=== PATIENT | male | born 1935 | race Caucasian/White ===

== ENCOUNTER 2018-01-08 13:55 | Observation (INO) ==
[2018-01-08] MEDS ORDERED: NITROGLYCERIN 0.4 MG SUBLINGUAL TABLET SL PRN ×2 (14:06→17:11)
[2018-01-08] MEDS ORDERED: ASPIRIN 81 MG CHEWABLE TABLET PO ONE (14:06)
[2018-01-08] MEDS: SALINE FLUSH 10ml SYRINGE IVF PRN ×2 (14:10→16:10)
--- OUTSIDE RECORDS SUMMARY | 2018-01-08 14:43 | External Medical Summary | Continuity of Care Document ---
:1935 Author Organization Via [facility] Allergies Active Description Code Type Severity Reaction Onset Reported/ Identified Relationship Clinical to Patient Status Yes ERBINAFINE 26714 N/A N/A Yes SYMBICOR N/A N/A Yes SYMBICORT N/A N/A Yes TERBINAFINE 17568 N/A N/A Yes VALIUM 62566 N/A N/A 2 Yes Aminoglycosi neomy Aller Unknown N/A 05/06/2016 rody lashay gy Yes Bacitracin bacit Aller Unknown N/A 05/06/2016 racin gy Yes Benzodiazepi diaze AdvRe Unknown HYPERACTI 05/06/2016 sascha willem ac VE Yes Beta-Adrener formo Aller M RESTLESSN 05/06/2016 gic Agents terol gy ESS, fumar ANXIETY, ate HYPERACTI VITY Yes Clavulanic potas AdvRe I DIARRHEA 05/06/2016 Acid sium ac clavu lanat e Yes Corticostero budes Aller M RESTLESSN 05/06/2016 ids onide gy ESS, (Glucocortic ANXIETY, oids) HYPERACTI VITY Yes Gramicidins grami Aller Unknown N/A 05/06/2016 cidin gy D Yes Penicillins amoxi AdvRe I DIARRHEA 05/06/2016 cilli ac n trihy drate Yes Polymyxin B polym Aller Unknown N/A 05/06/2016 yxin gy B Medications Medication Packaging Start Date Stop Date Route Dosage Sig 05/27/2010 PO 150 mg BID Ranitidine HCl 05/27/2010 PO 50 mg HS Doxepin HCl 05/27/2010 PO 500 mg BID Metformin HCl 05/27/2010 PO 20 mg BID Furosemide 05/27/2010 PO HS Zocor ORAL 08/17/2012 ORAL 30 q6h XANAX 5 05/29/2013 PO 0.4 mg HS Tamsulosin HCl 05/29/2013 PO 5 mg HS Finasteride Inhaler 08/06/2014 90 2 ProAir HFA 90 4 mcg/actuati (two) Puff(s) mcg/actuation on by Inhalation aerosol inhaler route every 4 to 6 hours 09/06/2014 PO 80 mg Q8H Simethicone ORAL 10/17/2014 ORAL 30 ZOLOFT 5 every morning 05/06/2016 SQ 100 unit/ml ACS NovoLOG 05/06/2016 SQ BID Lantus 06/18/2017 1 Q1D fluticasone furoate 0.1 MG/ACTUAT / vilanterol 0.025 MG/ACTUAT Dry Powder Inhaler 01/08/2018 PO 250 mg Levaquin DAILY 01/08/2018 PO 0.4 mg HS Flomax 01/08/2018 PO 1,000 mg Glucophage BIDWM 01/08/2018 PO 5 mg HS Proscar 01/08/2018 PO 81 mg Ecotrin DAILY 01/08/2018 PO 250 mg TID Flagyl 01/08/2018 PO 20 mg Lasix 20 mg Tab DAILY Problems Date Dx Attending Type Code Diagnosis Diagnosed By Coded 04/21/2013 Catrachito HERNANDEZ, Final 185 PROSTATE CA John 04/21/2013 Catrachito HERNANDEZ, Final 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 John 04/21/2013 Catrachito HERNANDEZ, Final 401.1 BENIGN HYPERTENSION John 04/21/2013 Catrachito HERNANDEZ, Final 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 04/21/2013 Catrachito HERNANDEZ, Final 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 John 04/21/2013 Catrachito HERNANDEZ, Final 530.81 ESOPHAGEAL REFLUX John 04/21/2013 Catrachito HERNANDEZ, Admitting 786.50 CHEST PAIN NOS John 05/01/2014 CINDY HERNANDEZ, SON 493.10 Intrinsic Asthma CINDY HERNANDEZ, SON Unspecified 05/01/2014 CINDY HERNANDEZ, SON 494.0 Bronchiectasis CINDY HERNANDEZ, SON Without Acute Exacerbation 05/01/2014 CINDY HERNANDEZ, SON 518.89 Other Diseases Of CINDY HERNANDEZ, SON Lung Not Elsewhere Classified 05/01/2014 CINDY HERNANDEZ, SON 780.53 Hypersomnia With CINDY HERNANDEZ, SON Sleep Apnea Unspecified 05/01/2014 CINDY HERNANDEZ, SON 780.79 Other Malaise And CINDY HERNANDEZ, SON Fatigue 05/01/2014 CINDY HERNANDEZ, SON 786.05 Shortness Of Breath CINDY HERNANDEZ, SON 05/01/2014 CINDY HERNANDEZ, SON 786.07 Wheezing CINDY HERNANDEZ, SON 05/01/2014 WHITELILLIE HERNANDEZ, SON 786.2 Cough CINDY HERNANDEZ, SON 05/01/2014 CINDY HERNANDEZ, SON 799.02 Hypoxemia CINDY HERNANDEZ, SON 05/10/2014 CINDY HERNANDEZ, SON 493.10 Intrinsic Asthma CINDY HERNANDEZ, SON Unspecified 05/10/2014 CINDY HERNANDEZ, SON 494.0 Bronchiectasis CINDY HERNANDEZ, SON Without Acute Exacerbation 05/10/2014 CINDY HERNANDEZ, SON 518.89 Other Diseases Of CINDY HERNANDEZ, SON Lung Not Elsewhere Classified 05/10/2014 CINDY HERNANDEZ, SON 780.53 Hypersomnia With CINDY HERNANDEZ, SON Sleep Apnea Unspecified 05/10/2014 CINDY HERNANDEZ, SON 780.79 Other Malai And CINDY HERNANDEZ, SON Fatigue 05/10/2014 CINDY HERNANDEZ, SON 786.05 Shortness Of Breath CINDY HERNANDEZ, SON 05/10/2014 CINDY HERNANDEZ, SON 786.07 Wheezing CINDY HERNANDEZ, SON 05/10/2014 CINDY HERNANDEZ, SON 786.2 Cough CINDY HERNANDEZ, SON 05/10/2014 CINDY HERNANDEZ, SON 799.02 Hypoxemia CINDY HERNANDEZ, SON 05/23/2014 CINDY HERNANDEZ, SON 786.09 Respiratory CINDY HERNANDEZ, SON Abnormality Other 08/22/2014 CINDY HERNANDEZ, SON 250.00 Diabetes Mellitus CINDY HERNANDEZ, SON Without Mention Of Complication Type Ii Or Unspecified Type Not Stated As Uncontrolled 08/22/2014 CINDY HERNANDEZ, SON 401.9 Unspecified CINDY HERNANDEZ, SON Essential Hypertension 08/22/2014 CINDY HERNANDEZ, SON 493.10 Intrinsic Asthma CINDY HERNANDEZ, SON Unspecified 08/22/2014 CINDY HERNANDEZ, SON 494.0 Bronchiectasis CINDY HERNANDEZ, SON Without Acute Exacerbation 08/22/2014 CINDY HERNANDEZ, SON 518.89 Other Diseases Of CINDY HERNANDEZ, SON Lung Not Elsewhere Classified 08/22/2014 CINDY HERNANDEZ, SON 780.53 Hypersomnia With CINDY HERNANDEZ, SON Sleep Apnea Unspecified 08/22/2014 CINDY HERNANDEZ, SON 780.79 Other Malaise And CINDY HERANNDEZ, SON Fatigue 08/22/2014 CINDY HERNANDEZ, SON 799.02 Hypoxemia CINDY HERNANDEZ, SON 03/26/2015 CINDY HERNANDEZ, SON 250.00 Diabetes Mellitus CINDY HERNANDEZ, SON Without Mention Of Complication Type Ii Or Unspecified Type Not Stated As Uncontrolled 03/26/2015 CINDY HERNANDEZ, SON 401.9 Unspecified CINDY HERNANDEZ, SON Essential Hypertension 03/26/2015 CINDY HERNANDEZ, SON 493.10 Intrinsic Asthma CINDY HERNANDEZ, SON Unspecified 03/26/2015 CINDY HERNANDEZ, SON 494.0 Bronchiectasis CINDY HERNANDEZ, SON Without Acute Exacerbation 03/26/2015 CINDY HERNANDEZ, SON 518.89 Other Diseases Of CINDY HERNANDEZ, SON Lung Not Elsewhere Classified 03/26/2015 CINDY HERNANDEZ, SON 780.53 Hypersomnia With CINDY HERNANDEZ, SON Sleep Apnea Unspecified 03/26/2015 CINDY HERNANDEZ, SON 780.79 Other Malaise And CINDY HERNANDEZ, SON Fatigue 03/26/2015 CINDY HERNANDEZ, SON 786.05 Shortness Of Breath CINDY HERNANDEZ, SON 03/26/2015 CINDY HERNANDEZ, SON 786.07 Wheezing CINDY HERNANDEZ, SON 03/26/2015 CINDY HERNANDEZ, SON 786.2 Cough CINDY HERNANDEZ, SON 03/26/2015 CINDY HERNANDEZ, SON 799.02 Hypoxemia CINDY HERNANDEZ, SON 04/20/2015 CINDY HERNANDEZ, SON 786.05 Shortness Of Breath CINDY HERNANDEZ, SON 04/10/2016 CINDY HERNANDEZ, SON J42 Unspecified chronic CINDY HERNANDEZ, SON bronchitis 04/10/2016 CINDY HERNANDEZ, SON J47.9 Bronchiectasis, CINDY HERNANDEZ, SON uncomplicated 04/10/2016 CINDY HERNANDEZ, SON R09.02 Hypoxemia CINDY HERNANDEZ, SON 04/10/2016 CINDY HERNANDEZ, SON R91.1 Solitary pulmonary CINDY HERNANDEZ, SON nodule 05/01/2016 CINDY HERNANDEZ, SON J47.9 Bronchiectasis, CINDY HERNANDEZ, SON uncomplicated 10/12/2016 CINDY HERNANDEZ, SON 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 CINDY HERNANDEZ, SON 10/12/2016 CINDY HERNANDEZ, SON G47.33 Obstructive sleep CINDY HERNANDEZ, SON apnea (adult) (pediatric) 10/12/2016 CINDY HERNANDEZ, SON J47.9 Bronchiectasis, CINDY HERNANDEZ, SON uncomplicated 10/12/2016 CINDY HERNANDEZ, SON R09.02 Hypoxemia CINDY HERNANDEZ, SON 10/12/2016 CINDY HERNANDEZ, SON R91.1 Solitary pulmonary CINDY HERNANDEZ, SON nodule 03/31/2017 CINDY HERNANDEZ, SON 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 CINDY HERNANDEZ, SON 03/31/2017 CINDY HERNANDEZ, SON J42 Unspecified chronic CINDY HERNANDEZ, SON bronchitis 03/31/2017 CINDY HERNANDEZ, SON R05 Cough CINDY HERNANDEZ, SON 03/31/2017 CINDY HERNANDEZ, SON R06.02 Shortness of breath CINDY HERNANDEZ, SON 03/31/2017 CINDY HERNANDEZ, SON R09.02 Hypoxemia CINDY HERNANDEZ, SON 03/31/2017 CINDY HERNANDEZ, SON R53.83 Other fatigue CINDY HERNANDEZ, SON 03/31/2017 CINDY HERNANDEZ, SON R91.1 Solitary pulmonary CINDY HERNANDEZ, SON nodule 04/21/2017 CINDY HERNANDEZ, SON J47.9 Bronchiectasis, CINDY HERNANDEZ, SON uncomplicated 08/26/2017 F G47.10 Hypersomnia, unspecified 08/26/2017 F G47.33 Obstructive sleep apnea (adult) (pediatric) 08/26/2017 F G47.36 Sleep related hypoventilation in conditions classified elsewhere 08/26/2017 F J44.9 Chronic obstructive pulmonary disease, unspecified 08/26/2017 F R05 Cough 08/26/2017 F R06.02 Shortness of breath 08/26/2017 F R53.83 Other fatigue 08/26/2017 F J47.9 Bronchiectasis, uncomplicated 11/03/2017 RASHID GARCIA G47.10 Hypersomnia, unspecified 11/03/2017 RASHID GARCIA G47.33 Obstructive sleep apnea (adult) (pediatric) 11/03/2017 RASHID GARCIA G47.36 Sleep related hypoventilation in conditions classified elsewhere 11/03/2017 RASHID GARCIA I25.10 Atherosclerotic heart disease of [place] coronary artery without angina pectoris 11/03/2017 RASHID GARCIA J44.9 Chronic obstructive pulmonary disease, unspecified 11/03/2017 RASHID GARCIA R05 Cough 11/03/2017 RASHID GARCIA R06.02 Shortness of breath 11/03/2017 RASHID GARCIA R53.83 Other fatigue 11/03/2017 RASHID GARCIA Z23 Encounter for immunization 11/24/2017 RASHID GARCIA J42 Unspecified chronic bronchitis 11/24/2017 RASHID GARCIA J47.9 Bronchiectasis, uncomplicated 11/25/2017 RASHID GARCIA G47.10 Hypersomnia, unspecified 11/25/2017 RASHID GARCIA G47.36 Sleep related hypoventilation in conditions classified elsewhere 11/25/2017 RASHID GARCIA I25.10 Atherosclerotic heart disease of [place] coronary artery without angina pectoris 11/25/2017 RASHID GARCIA J42 Unspecified chronic bronchitis 11/25/2017 RASHID GARCIA J44.9 Chronic obstructive pulmonary disease, unspecified 11/25/2017 RASHID GARCIA J47.9 Bronchiectasis, uncomplicated 11/25/2017 RASHID GARCIA R05 Cough 11/25/2017 RASHID GARCIA R06.02 Shortness of breath 11/25/2017 RASHID GARCIA R53.83 Other fatigue 11/25/2017 RASHID GARCIA Z23 Encounter for immunization 11/25/2017 RASHID GARCIA G47.39 Other sleep apnea 11/25/2017 ARSHID GARCIA I50.30 Unspecified diastolic (congestive) heart failure Procedures Code Description Performed By Performed On PX ON 1 VESSEL Catrachito HERNANDEZ, John 04/21/2013 00.40 INSERT 1 VASC Catrachito HERNANDEZ, John 04/21/2013 00.45 STENT PTCA/ATHERECTOMY Catrachito HERNANDEZ, John 04/21/2013 00.66 DRUG-ELUTING COR Catrachito HERNANDEZ, John 04/21/2013 36.07 STENT LEFT HEART CARDIAC Catrachito HERNANDEZ, John 04/21/2013 37.22 CATH LT HEART Catrachito HERNANDEZ, John 04/21/2013 88.53 ANGIOCARDIOGRAM COR ARTERIOGRAM-2 John Winston MD 04/21/2013 88.56 CATH Amy WHITE MD, [facility] 03/21/2016 90907 and/or evaluation of patient utilization of an aerosol generator, nebulizer, metered d Noninvasive kd WHITE MD, [facility] 03/21/2016 13545 pulse oximetry for oxygen saturation; single determination Noninvasive kd WHITE MD, [facility] 03/21/2016 14768 pulse oximetry for oxygen saturation; multiple determinations (eg, during exercis Office or other CINDY HERNANDEZ, [facility] 03/21/2016 84742 outpatient visit for the evaluation and management of an established patient, which Bronchodiljennifer WHITE MD, [facility] 03/21/2016 12149 responsiveness[place] [address], pre- and post-bronchodilator administration Amy WHITE MD, [facility] 04/10/2016 23305 and/or evaluation of patient utilization of an aerosol generator, nebulizer, metered d Office or other CINDY HERNANDEZ, [facility] 04/10/2016 99983 outpatient visit for the evaluation and management of an established patient, which Amy WHITE MD, [facility] 04/10/2016 84240 and/or evaluation of patient utilization of an aerosol generator, nebulizer, metered d Office or other CINDY HERNANDEZ, [facility] 04/10/2016 54080 outpatient visit for the evaluation and management of an established patient, which Amy WHITE MD, [facility] 04/30/2016 24304 and/or evaluation of patient utilization of an aerosol generator, nebulizer, metered d Office or other CINDY HERNANDEZ, [facility] 04/30/2016 23756 outpatient visit for the evaluation and management of an established patient, which Bronchodilation CINDY HERNANDEZ, [facility] 05/01/2016 30214 responsiveness[place] [address], pre- and post-bronchodilator administration Bronchodilation CINDY HERNANDEZ, [facility] 05/01/2016 40391 responsiveness[place] [address], pre- and post-bronchodilator administration Bronchodilation CINDY HERNANDEZ, [facility] 05/19/2016 16184 responsiveness[place] [address], pre- and post-bronchodilator administration Bronchodilation CINDY HERNANDEZ, [facility] 07/16/2016 88672 responsiveness[place] [address], pre- and post-bronchodilator administration Bronchodilation CINDY HERNANDEZ, [facility] 07/28/2016 69039 responsiveness[place] [address], pre- and post-bronchodilator administration Amy WHITE MD [facility] 10/12/2016 28237 and/or evaluation of patient utilization of an aerosol generator, nebulizer, metered d Office or other CINDY HERNANDEZ, [facility] 10/12/2016 84194 outpatient visit for the evaluation and management of an established patient, which Amy WHITE MD [facility] 10/27/2016 18776 and/or evaluation of patient utilization of an aerosol generator, nebulizer, metered d Office or other CINDY HERNANDEZ [facility] 10/27/2016 91607 outpatient visit for the evaluation and management of an established patient, which Amy WHITE MD [facility] 10/27/2016 99659 and/or evaluation of patient utilization of an aerosol generator, nebulizer, metered d Office or other CINDY HERNANDEZ [facility] 10/27/2016 05429 outpatient visit for the evaluation and management of an established patient, which Amy WHITE MD [facility] 03/31/2017 79848 and/or evaluation of patient utilization of an aerosol generator, nebulizer, metered d Office or other CINDY HERNANDEZ [facility] 03/31/2017 42349 outpatient visit for the evaluation and management of an established patient, which Amy WHITE MD [facility] 04/10/2017 94815 and/or evaluation of patient utilization of an aerosol generator, nebulizer, metered d Office or other CINDY HERNANDEZ [facility] 04/10/2017 99241 outpatient visit for the evaluation and management of an established patient, which EST PATIENT LEVEL 08/26/2017 50682 4 EVALUATION OF 08/26/2017 83168 WHEEZI Amy WHITE MD, [facility] 08/26/2017 65115 and/or evaluation of patient utilization of an aerosol generator, nebulizer, metered d Noninvasive kd WHITE MD, [facility] 08/26/2017 12400 pulse oximetry for oxygen saturation; single determination Luciano WHITE MD, [facility] 08/26/2017 54145 pulse oximetry for oxygen saturation; multiple determinations (eg, during exercis Office or other CINDY HERNANDEZ [facility] 08/26/2017 11131 outpatient visit for the evaluation and management of an established patient, which Bronchodilation CINDY HERNANDEZ [facility] 08/26/2017 65749 responsiveness[place] [address], pre- andpost-bronchodilator administration Demonstration CINDY HERNANDEZ, [facility] 08/26/2017 66203 and/or evaluation of patient utilization of an aerosolgenerator, nebulizer, metered do Noninvasive kd WHITE MD, [facility] 08/26/2017 11197 pulse oximetry for oxygen saturation; singledetermination Office or other CINDY HERNANDEZ, [facility] 08/26/2017 17863 outpatient visit for the evaluation and management ofan established patient, which r Tobacco use CINDY HENRANDEZ, [facility] 08/26/2017 1000F assessed (CAD, CAP, COPD, PV) (DM) Medication list CINDY HERNANDEZ, [facility] 08/26/2017 1159F documented in medical record (COA) Blood pressure CINDY HERNANDEZ, [facility] 08/26/2017 2000F measured (CKD)(DM) Bronchodilation CINDY HERNANDEZ, [facility] 08/26/2017 72232 responsiveness[place] [address], pre- and post-bronchodilator administration Demonstration CINDY HERNANDEZ, [facility] 08/26/2017 53441 and/or evaluation of patient utilization of an aerosol generator, nebulizer, metered d Luciano WHITE MD, [facility] 08/26/2017 10600 pulse oximetry for oxygen saturation; single determination Luciano WHITE MD, [facility] 08/26/2017 38214 pulse oximetry for oxygen saturation; multiple determinations (eg, during exercis Office or other CINDY HERNANDEZ, [facility] 08/26/2017 85104 outpatient visit for the evaluation and management of an established patient, which Bronchodilation CINDY HERNANDEZ, [facility] 08/26/2017 45482 responsiveness[place] [address], pre- and post-bronchodilator administration Demonstration CINDY HERNANDEZ, [facility] 08/26/2017 55372 and/or evaluation of patient utilization of an aerosol generator, nebulizer, metered d Office or other CINDY HERNANDEZ, [facility] 08/26/2017 68417 outpatient visit for the evaluation and management of an established patient, which Bronchodiljennifer WHITE MD, [facility] 08/26/2017 56333 responsiveness[place] [address], pre- and post-bronchodilator administration EST PATIENT LEVEL 11/03/2017 66968 4 EST PATIENT LEVEL 11/25/2017 89754 4 Results Test Result Range L100.0070 - 08/17/16 04:10 WBC - WHITE BLOOD COUNT 8.3 T/MM3 4.5-11.0 RED BLOOD COUNT 4.49 M/MM3 4.50-5.90 HGB - HEMOGLOBIN 13.4 GM/DL 13.5-17.5 HCT - HEMATOCRIT 39.2 % 41-53 MEAN CORPUSCULAR VOLUME 87.3 UM3 80-100 MEAN CORPUSCULAR HGB 29.8 UUG 26-34 MEAN CORPUSCULAR HGB CONC(MCHC 34.2 GM/DL 31-37 RDW STANDARD DEVIATION 41.2 FL 36.9-50.2 PLT - PLATELET COUNT 204 T/MM3 130-400 MEAN PLATELET VOLUME 9.7 UM3 9.4-12.4 L200.49 - 05/06/16 04:10 ICTERUS < 2 0-7 HEMOLYSIS < 15 0-25 L575.0925 - 05/06/16 04:20 CAMPYLOBACTER NEGATIVE NEGATIVE CLOSTRIDIUM DIFFICILE TOX A/B NEGATIVE NEGATIVE PLESIOMONAS SHIGELLOIDES NEGATIVE NEGATIVE SALMONELLA NEGATIVE NEGATIVE VIBRIO NEGATIVE NEGATIVE VIBRIO CHOLERAE NEGATIVE NEGATIVE YERSINIA ENTERCOLITICA NEGATIVE NEGATIVE ENTEROAGGREGATIVE ECOLI(EAEC) NEGATIVE NEGATIVE ENTEROPATHOGENIC ECOLI(EPEC) NEGATIVE NEGATIVE ENTEROTOXIGENIC ECOLI(ETEC) NEGATIVE NEGATIVE SHIGA-LIKE TOX ECOLI(STEC) 1/2 NEGATIVE NEGATIVE E COLI O157 N/A NA/NEG SHIG/ENTEROINVASIVE ECOLI-EIEC NEGATIVE NEGATIVE CRYPTOSPORIDIUM NEGATIVE NEGATIVE CYCLOSPORA CAYETANENSIS NEGATIVE NEGATIVE ENTAMOEBA HISTOLYTICA NEGATIVE NEGATIVE GIARDIA LAMBLIA NEGATIVE NEGATIVE ADENOVIRUS F 40/41 NEGATIVE NEGATIVE ASTROVIRUS NEGATIVE NEGATIVE NOROVIRUS GI/GII NEGATIVE NEGATIVE ROTAVIRUS A NEGATIVE NEGATIVE SAPOVIRUS NEGATIVE NEGATIVE L100.0050 - 01/08/18 14:12 WBC - WHITE BLOOD COUNT 6.9 T/MM3 4.5-11.0 RED BLOOD COUNT 4.45 M/MM3 4.50-5.90 HGB - HEMOGLOBIN 13.1 GM/DL 13.5-17.5 HCT - HEMATOCRIT 38.9 % 41-53 MEAN CORPUSCULAR VOLUME 87.4 UM3 80-100 MEAN CORPUSCULAR HGB 29.4 UUG 26-34 MEAN CORPUSCULAR HGB CONC(MCHC 33.7 GM/DL 31-37 RDW STANDARD DEVIATION 41.9 FL 36.9-50.2 PLT - PLATELET COUNT 264 T/MM3 130-400 MEAN PLATELET VOLUME 9.6 UM3 9.4-12.4 NEUTROPHILS % (AUTO) 72.4 % 33-66 LYMPHOCYTES % (AUTO) 16.9 % 23-45 MONOCYTES % (AUTO) 6.8 % 0-9.0 EOSINOPHILS % (AUTO) 3.2 % 0-4 BASOPHILS % (AUTO) 0.6 % 0-2 IMMATURE GRANULOCYTE % (AUTO) 0.1 % 0.0-0.5 NEUTROPHILS # (AUTO) 5.0 T/MM3 1.8-7.7 LYMPHOCYTES # (AUTO) 1.2 T/MM3 1-4.8 MONOCYTES # (AUTO) 0.5 T/MM3 0-0.8 EOSINOPHILS # (AUTO) 0.2 T/MM3 0-0.5 BASOPHILS # (AUTO) 0.0 T/MM3 0-0.2 IMMATURE GRANULOCYTE # (AUTO) 0.01 T/MM3 0.00-0.03 L200.0050 - 01/08/18 14:12 FUNGAL CULTURE. 0.9 mg/dL 0.8-1.5 FUNGAL CULTURE, BLOOD. 14 RATIO 6-26 NA - Sodium 143 MEQ/L 134-144 Potassium 4.1 MEQ/L 3.6-5 Chloride 106 MEQ/L 98-107 CO2 - Carbon Dioxide 22 MEQ/L 22-30 Anion Gap 15 meq/L 5-15 BUN - Blood Urea Nitrogen 13.0 MG/DL 9-20 Glomerular Filtration Rate 81 NRG Glucose 250 MG/DL 75-110 Osmolality,Calculated 283 MOSM/KG 261-280 Calcium 8.9 MG/DL 8.4-10.2 LICTERUS < 2 0-7 LHEMOLYSIS < 15 0-25 LTURBIDITY < 20 0-20 L300.3490 - 01/08/18 14:12 Troponin I < 0.012 ng/ml 0-0.12 Encounters ACCT No. Visit Discharge Status Pt. Type Provider Facility Loc./Unit Complaint Date/Time [id number] 04/21/2013 04/23/2013 DIS Inpatient Amirani Via [id number] 12:02:00 14:24:00 , [facility] on [place] [id number] 11/25/2017 11/25/2017 CLS Outpatient JOSE, MAIN 15:33:00 23:59:59 RASHID OFFICE [id number] 11/03/2017 11/03/2017 CLS Outpatient OHSONNYFRANCISCO, MAIN 11:07:00 23:59:59 RASHID OFFICE [id number] 11/03/2017 Document 12:19:[place] [id number] 08/26/2017 Document 12:22:[place] [id number] 08/26/2017 Document 12:22:00 Registrati on [id number] 03/31/2017 03/31/2017 CLS Outpatient WHITE 15:47:00 23:59:59 , SON [id number] 11/05/2016 11/05/2016 Outpatient 13:39:34 13:39:34 [id number] 10/01/2016 12/07/2016 DIS R NEELAM Reyes DMEDU 33 09:30:00 00:00:00 DO, [facility] [place] [id number] 06/25/2016 08/12/2016 DIS Kristy Reyes DMEDU 77 13:00:00 00:00:00 DO, [facility] [id number] 05/06/2016 05/06/2016 DIS Emergency MAY Eric HEDRICK ED 41 02:57:00 05:20:00 [facility] [id number] 01/08/2018 Document 88 14:05:00 Registrati on
[2018-01-08] MEDS ORDERED: CEFTRIAXONE (ER USE ONLY) 1 GM in NS 100 ML IV ONE (15:47)
--- NOTE | 2018-01-08 15:51 | Emergency Department Report ---
Chest Pain HPI - General Chief Complaint: Chest Pain Stated Complaint: cp/back pain Source: patient, family Mode of arrival: ambulatory Limitations: no limitations - History of Present Illness HPI narrative: PT presents with a complaint of chest and back pain. Pt reports that while sleeping last night he woke with chest and back pain like someone was "squeezing " him. He was able to roll over and go back to sleep but back pain continued this am. Pt has chronic back pain after multiple surgeries but states this is different than his normal pain. Pt denies nausea, vomiting, diaphoresis, SOA, fever, or cough. MD complaint: chest pain Occurred At: home Onset (ago): hour(s) Duration: constant Onset: during rest Pain location: substernal Severity: moderate Pain radiation: none Relieving factors: nothing - Related Data Home Medications Medication Instructions Recorded Confirmed Doxepin HCl 50 mg PO HS #0 05/27/10 01/08/18 Simvastatin [Zocor] 40 mg PO HS #0 05/27/10 01/08/18 Insulin Aspart [NovoLOG] 20 unit SQ ACB #0 vial 05/06/16 01/08/18 Insulin Aspart [NovoLOG] 25 unit SQ ACL #0 vial 05/06/16 01/08/18 Insulin Aspart [NovoLOG] 25 unit SQ ACS #0 vial 05/06/16 01/08/18 Insulin Glargine,Hum.rec.anlog 40 unit SQ BID #0 vial 05/06/16 01/08/18 [Lantus] Amlodipine [Norvasc] 5 mg PO DAILY 01/08/18 01/08/18 Aspirin [Ecotrin] 81 mg PO DAILY 01/08/18 01/08/18 Finasteride [Proscar] 5 mg PO HS 01/08/18 01/08/18 Fluticasone/Vilanterol [Breo 1 puff INH DAILY 01/08/18 01/08/18 Ellipta 200-25 Mcg Inhaler] Furosemide [Lasix 20 mg Tab] 20 mg PO DAILY 01/08/18 01/08/18 Latanoprost 1 drop EACH EYE HS 01/08/18 01/08/18 Levofloxacin [Levaquin] 250 mg PO DAILY 01/08/18 01/08/18 Levothyroxine Tab [Synthroid] 75 mcg PO DAILY 01/08/18 01/08/18 Lisinopril [Prinivil] 2.5 mg PO DAILY 01/08/18 01/08/18 Metformin [Glucophage] 500 mg PO BIDWM 01/08/18 01/08/18 Metoprolol Tartrate [Lopressor] 12.5 mg PO BIDWM 01/08/18 01/08/18 MetroNIDAZOLE [Flagyl] 250 mg PO TID 01/08/18 01/08/18 Nitroglycerin [Nitrostat] 0.4 mg SL Q5M PRN 01/08/18 01/08/18 Ropinirole [Requip] 1 mg PO HS 01/08/18 01/08/18 Tamsulosin [Flomax] 0.4 mg PO HS 01/08/18 01/08/18 Terbinafine Tab [LamISIL] 250 mg PO PRN 01/08/18 01/08/18 Allergies Allergy/AdvReac Type Severity Reaction Status Date / Time budesonide Allergy Mild RESTLESSNESS, Verified 05/06/16 03:42 ANXIETY, HYPERACTIVITY bacitracin Allergy Unknown Verified 01/08/18 14:30 gramicidin D Allergy Unknown Verified 01/08/18 14:30 neomycin Allergy Unknown Verified 01/08/18 14:30 polymyxin B Allergy Unknown Verified 01/08/18 14:30 diazepam AdvReac Unknown HYPERACTIVE Verified 01/08/18 14:30 formoterol fumarate Allergy Mild RESTLESSNESS, Uncoded 05/06/16 03:42 ANXIETY, HYPERACTIVITY amoxicillin trihydrate AdvReac Intermediate DIARRHEA Uncoded 05/06/16 03:42 potassium clavulanate AdvReac Intermediate DIARRHEA Uncoded 05/06/16 03:42 MUSCLE RELAXANTS AdvReac Unknown CONFUSION Uncoded 01/17/14 09:45 Review of Systems All systems: reviewed and negative except as stated Constitutional: Reports: as per HPI Cardiovascular: Reports: as per HPI Respiratory: Reports: as per HPI Gastrointestinal: Reports: as per HPI Musculoskeletal: Reports: as per HPI PFS Patient Stated Medical History Cerebrovascular Accident No Glaucoma Yes Hearing Loss Yes: HEARING AIDS BILAT EARS Angina Yes Coronary Artery Disease Yes Hypertension Yes Myocardial Infarction Yes Sleep Apnea Yes Other Respiratory Yes: BRONCHIOSTASIS Diabetes Mellitus Type 2 Yes Gastroesophageal Reflux Yes Disease Hx Kidney Stones Yes Recreational Drug Use No - Social History Smoking status: Never smoker Physical Exam - Limitations Limitations: no limitations - General General appearance: alert, in no apparent distress - Normal Exams: Head:: Normocephalic without trauma Eyes:: Pupils are PERRLA w/ EOMI Chest/Respirations:: Clear all villa, with good airflow, and symmetry bilaterally Cardiovascular:: Regular rate and rhythm, without murmur or gallop, Pulses 2+ all extremities, capillary refill, <2 seconds all extremities Abdomen:: Bowel sounds positive, soft, non-tender, non-distended Musculoskeletal:: No tenderness, or deformity noted, good range of motion, all extremities Integumentary:: No rashes Neurological:: Patient is alert, and oriented, cranial nerves, motor/sensory/ cerebellar, exams w/o gross deficits, to observation Psychiatric:: Patient exhibits, appropriate attention, emotion and affect Course Vital Signs Temperature 98.0 F 01/08/18 14:00 Pulse Rate 102 H 01/08/18 14:00 Respiratory Rate 26 H 01/08/18 14:00 Blood Pressure 186/91 H 01/08/18 14:00 Pulse Oximetry 93 01/08/18 14:00 Temperature 97.0 F 01/09/18 07:16 Pulse Rate 59 L 01/09/18 08:00 Respiratory Rate 18 01/09/18 07:16 Blood Pressure 153/81 H 01/09/18 07:16 Pulse Oximetry 96 01/09/18 07:16 Chest Pain - MDM Narrative Medical decision making narrative: Labs, EKG, and Xray reviewed. Results consistent with a CAP. Findings discussed with pt and family. Questions answered. PT to receive a dose of Rocephin. Pt has a grade 4 PORT score. Hospitalist notified for admission. Findings and plan discussed with pt and family who voice understanding. - Differential Diagnosis Likely: stable angina, unstable angina pectoris, atypical chest pain, costochondritis, chest pain - Lab Data Attestation: I reviewed the patient's lab results. Result diagrams: 01/09/18 04:38 01/09/18 04:38 Lab Results 01/08/18 01/08/18 Range/Units 14:12 14:12 WBC 6.9 (4.5-11.0) T/MM3 RBC 4.45 L (4.50-5.90) M/MM3 Hgb 13.1 L (13.5-17.5) GM/DL Hct 38.9 L (41-53) % MCV 87.4 (80-100) UM3 MCH 29.4 (26-34) UUG MCHC 33.7 (31-37) GM/DL RDW Std Deviation 41.9 (36.9-50.2) FL Plt Count 264 (130-400) T/MM3 MPV 9.6 (9.4-12.4) UM3 Immature Gran % (Auto) 0.1 (0.0-0.5) % Neut % (Auto) 72.4 H (33-66) % Lymph % (Auto) 16.9 L (23-45) % Hawkins % (Auto) 6.8 (0-9.0) % Eos % (Auto) 3.2 (0-4) % Baso % (Auto) 0.6 (0-2) % Neut # (Auto) 5.0 (1.8-7.7) T/MM3 Lymph # (Auto) 1.2 (1-4.8) T/MM3 Hawkins # (Auto) 0.5 (0-0.8) T/MM3 Eos # (Auto) 0.2 (0-0.5) T/MM3 Baso # (Auto) 0.0 (0-0.2) T/MM3 Abs Immat Gran (auto) 0.01 (0.00-0.03) T/MM3 Turbidity < 20 (0-20) Sodium 143 (134-144) MEQ/L Potassium 4.1 (3.6-5) MEQ/L Chloride 106 (98-107) MEQ/L Carbon Dioxide 22 (22-30) MEQ/L Anion Gap 15 (5-15) meq/L BUN 13.0 (9-20) MG/DL Creatinine 0.9 (0.8-1.5) mg/dL GFR Calculation 81 BUN/Creatinine Ratio 14 (6-26) RATIO Glucose 250 H (75-110) MG/DL Calculated Osmolality 283 H (261-280) MOSM/KG Calcium 8.9 (8.4-10.2) MG/DL Icterus Index < 2 (0-7) Troponin I < 0.012 (0-0.12) ng/ml NT-Pro-B Natriuret Pep 125 (0-175) pg/mL Specimen Hemolysis < 15 (0-25) - Radiology Data Attestation: I reviewed the patient's radiology results. (RLL pneumonia per Dr Coleman) - EKG Data EKG #1 EKG attestation: Yes: I reviewed and interpreted this EKG. EKG shows normal: sinus rhythm Rate: tachycardia Rhythm: NSR Disposition Clinical Impression: CHEST PAIN, DYSPNEA Disposition: 02 To [facility] Condition: Stable - Seen By: midlevel
[2018-01-08] MEDS ORDERED: LR 1,000 ML IV SCH (17:16)
[2018-01-08] MEDS ORDERED: DEXTROSE 50% SYRINGE 50ml (1 AMP) IVP PRN (17:16)
[2018-01-08] MEDS ORDERED: ACETAMINOPHEN 325 MG TABLET PO PRN (17:16)
[2018-01-08] MEDS ORDERED: ONDANSETRON 4 MG/2 ML INJECTION IVP PRN (17:16)
[2018-01-08] MEDS ORDERED: INSULIN REGULAR, HUMAN 100 UNIT/ML INJECTION SQ PRN (17:16)
[2018-01-08] MEDS ORDERED: SENNA + DOCUSATE TABLET PO PRN (17:16)
[2018-01-08] MEDS ORDERED: HYDROCODONE/APAP 5mg/325mg TABLET PO PRN (17:16)
[2018-01-08] MEDS ORDERED: GLUCOSE ORAL GEL 40% 37.5gm PO PRN (17:16)
--- NOTE | 2018-01-08 17:20 | History & Physical Report ---
History of Present Illness Date: 01/08/18 Chief complaint: "My chest and back are hurting" HPI: Mr. Lopez is a very pleasant 82-year-old gentleman who presented to the ED today due to the above chief complaint. This pain in his chest started in his sleep and awoke him from sleeping, is primarily on the right site with radiation to his back and arm. He denies dyspnea, fever, palpitations, orthopnea, dizziness or syncope. The pain has since eased up in the chest and arm and has now settled in his mid and upper back. Of note, he has had 6 back surgeries in the past and has had a lot of struggles with back pain in recent weeks. He also has a history of CAD and underwent cardiac stenting with Dr. Winston several years ago but has had no recent angina. He is not sure when his last stress test or echo would have been. He was evaluated in the ED and found to have a RLL infiltrate on his CXR. He does not have a leukocytosis, is stable on room air at rest but feels a little weak. His hemoglobin is stable, CXR demonstrates no enlargement of the mediastinum or aortic root. PORT score is 4 as he was tachycardic on arrival. After discussion with the patient and family he is agreeable to staying overnight tonight for observation. Blood cultures were drawn and he received a dose of IV rocephin. History is obtained from the patient and family as there is little in the computer medical record; he is a good historian however, and of note his birthday is tomorrow. Review of Systems - Constitutional Constitutional: Absent: fever(s), headache(s), lethargy - EENMT Eyes: Absent: blurry vision, photophobia - Cardiovascular Cardiovascular: Present: chest pain (as per HPI). Absent: palpitations, syncope , orthopnea, edema Vascular: Absent: intermittent claudication, varicosities - Respiratory Respiratory: Present: dyspnea, pain on inspiration. Absent: cough, wheezing - Gastrointestinal Gastrointestinal: Absent: abdominal pain, change in bowel habits, constipation, diarrhea - Genitourinary Genitourinary: Absent: dysuria, flank pain, hematuria - Musculoskeletal Musculoskeletal: Present: back pain, muscle weakness, myalgias - Integumentary/Breasts Integumentary: Present: alopecia. 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 He has a remote history of nephrolithiasis. Surgical History: He has had 6 back surgeries, tonsils and adenoids in his youth , abdominal hernia repair, cardiac stenting. Family History: No Significant Family History - Social History Smoking status: Never smoker Alcohol intake frequency: does not drink Current occupational status: retired Does patient use chewing tobacco?: No Current residence: [facility] Social history: He wishes to be a DNR, discussed and confirmed with patient and family. His daughters are his POAs and have the necessary paperwork if needed. Medications Home Medications Medication Instructions Recorded Confirmed Type Doxepin HCl 50 mg PO HS #0 05/27/10 01/08/18 History Simvastatin [Zocor] 40 mg PO HS #0 05/27/10 01/08/18 History Insulin Aspart [NovoLOG] 20 unit SQ ACB #0 vial 05/06/16 01/08/18 History Insulin Aspart [NovoLOG] 25 unit SQ ACL #0 vial 05/06/16 01/08/18 History Insulin Aspart [NovoLOG] 25 unit SQ ACS #0 vial 05/06/16 01/08/18 History Insulin Glargine,Hum.rec.anlog 40 unit SQ BID #0 vial 05/06/16 01/08/18 History [Lantus] Amlodipine [Norvasc] 5 mg PO DAILY 01/08/18 01/08/18 History Aspirin [Ecotrin] 81 mg PO DAILY 01/08/18 01/08/18 History Finasteride [Proscar] 5 mg PO HS 01/08/18 01/08/18 History Fluticasone/Vilanterol [Breo 1 puff INH DAILY 01/08/18 01/08/18 History Ellipta 200-25 Mcg Inhaler] Furosemide [Lasix 20 mg Tab] 20 mg PO DAILY 01/08/18 01/08/18 History Latanoprost 1 drop EACH EYE HS 01/08/18 01/08/18 History Levofloxacin [Levaquin] 250 mg PO DAILY 01/08/18 01/08/18 History Levothyroxine Tab [Synthroid] 75 mcg PO DAILY 01/08/18 01/08/18 History Lisinopril [Prinivil] 2.5 mg PO DAILY 01/08/18 01/08/18 History Metformin [Glucophage] 500 mg PO BIDWM 01/08/18 01/08/18 History Metoprolol Tartrate [Lopressor] 12.5 mg PO BIDWM 01/08/18 01/08/18 History MetroNIDAZOLE [Flagyl] 250 mg PO TID 01/08/18 01/08/18 History Nitroglycerin [Nitrostat] 0.4 mg SL Q5M PRN 01/08/18 01/08/18 History Ropinirole [Requip] 1 mg PO HS 01/08/18 01/08/18 History Tamsulosin [Flomax] 0.4 mg PO HS 01/08/18 01/08/18 History Terbinafine Tab [LamISIL] 250 mg PO PRN 01/08/18 01/08/18 History Allergies Allergy/AdvReac Type Severity Reaction Status Date / Time budesonide Allergy Mild RESTLESSNESS, Verified 05/06/16 03:42 ANXIETY, HYPERACTIVITY bacitracin Allergy Unknown Verified 01/08/18 14:30 gramicidin D Allergy Unknown Verified 01/08/18 14:30 neomycin Allergy Unknown Verified 01/08/18 14:30 polymyxin B Allergy Unknown Verified 01/08/18 14:30 diazepam AdvReac Unknown HYPERACTIVE Verified 01/08/18 14:30 formoterol fumarate Allergy Mild RESTLESSNESS, Uncoded 05/06/16 03:42 ANXIETY, HYPERACTIVITY amoxicillin trihydrate AdvReac Intermediate DIARRHEA Uncoded 05/06/16 03:42 potassium clavulanate AdvReac Intermediate DIARRHEA Uncoded 05/06/16 03:42 MUSCLE RELAXANTS AdvReac Unknown CONFUSION Uncoded 01/17/14 09:45 Exam Vital Signs: Temperature 98.0 F 01/08/18 14:00 Pulse Rate 102 H 01/08/18 14:00 Respiratory Rate 26 H 01/08/18 14:00 Blood Pressure 186/91 H 01/08/18 14:00 Pulse Oximetry 93 01/08/18 14:00 Telemetry Rhythm: Sinus Rhythm - Constitutional Present: no acute distress, well nourished, well developed, obese, cooperative - Routine HEENT Exam Head: Present: normocephalic, atraumatic Eye: Present: PERRL. Absent: conjunctival icterus ENT: Present: mucous membranes moist, oropharynx clear - Routine Neck Exam Present: supple. Absent: JVD - Routine Respiratory Exam Present: diminished air movement. Absent: rales, rhonchi, wheezes - Routine Cardiovascular Exam Present: RRR. Absent: murmur, rubs - Routine Abdominal Exam Present: soft, non distended, non tender. Absent: rebound, guarding - Routine Extremities Exam Present: no edema, pulses intact - Routine Back/Spine/Pelvis Exam Back/Spine: Present: paraspinal tenderness - Routine Skin Exam Present: dry, warm. Absent: rash - Routine Neurological Exam Present: alert, oriented X3, vision grossly intact, normal speech - Routine Psychiatric Exam Present: normal affect Results - Labs CBC & Chem 7: 01/08/18 14:12 01/08/18 14:12 Labs: BNP 125 Troponin is normal on initial assessment. EKG reviewed with sinus tachycardia, no T wave or ST segment changes. Microbiology Results: Blood cultures x 2 drawn and pending. - Imaging and Cardiology Chest x-ray Status: image reviewed by me Additional comments: CXR demonstrates a haziness in the RLL that is likely an infiltrate. Assessment and Plan Assessment and Plan: Impression: CAP with RLL infiltrate on CXR associated with chest/flank pain and dyspnea --> Not hypoxic currently and no leukocytosis, ? 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 Winston outpatient RLS, on requip at night for sleep Plan: Keep for observation on the medical floor with telemetry 02 as needed to keep saturations > 90% Use bipap overnight and titrate to settings for comfort; IV rocephin given x 1 in the ED and will continue daily dosing and monitor for any signs of worsening infection LR @ 75 ml/hour x 1 liter total and hold home lasix Continue home BP medications including amlodipine, lisinopril, metoprolol and monitor BP DNR as per patient request; confirmed with patient and family in the ED and orders placed. When discharged will return to the care of his PCP, Dr. Pozo. Check BMP, CBC, troponin, Mg levels in AM as well as lipid panel. Will keep in observation status, if improved tomorrow may be able to DC on oral antibiotics. DVT Prophylaxis: SCD's GI Prophylaxis: other (Not indicated in this clinical scenario. ) Resuscitation Status: Do Not Resuscitate - Time spent with patient Time with patient PN: 50 minutes - Physician Narrative Physician: Catalina Dave MD Narrative: Date: 01/08/18 Time: [id number] Hospital Course Summary Disclaimer: The visit summary below is not to be considered part of the above Progress Note. Hospital Course: 01/08/18 Impression: CAP with RLL infiltrate on CXR associated with chest/flank pain and dyspnea --> Not hypoxic currently and no leukocytosis, ? 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 Winston outpatient RLS, on requip at night for sleep Plan: Keep for observation on the medical floor with telemetry 02 as needed to keep saturations > 90% Use bipap overnight and titrate to settings for comfort; IV rocephin given x 1 in the ED and will continue daily dosing and monitor for any signs of worsening infection LR @ 75 ml/hour x 1 liter total and hold home lasix Continue home BP medications including amlodipine, lisinopril, metoprolol and monitor BP DNR as per patient request; confirmed with patient and family in the ED and orders placed. When discharged will return to the care of his PCP, Dr. Pozo. Check BMP, CBC, troponin, Mg levels in AM as well as lipid panel. Will keep in observation status, if improved tomorrow may be able to DC on oral antibiotics.
[2018-01-08 17:39] VITALS: BMI 32.5
[2018-01-08] MEDS: METOPROLOL TARTRATE 25 MG PO SCH (19:49)
[2018-01-08] MEDS ORDERED: LATANOPROST 0.005% EYE DROPS 2.5ml EACH EYE SCH ×2 (21:00)
[2018-01-08] MEDS ORDERED: TAMSULOSIN 0.4 MG PO SCH (21:00)
[2018-01-08] MEDS ORDERED: DOXEPIN 25 MG PO SCH (21:00)
[2018-01-08] MEDS ORDERED: ROPINIROLE 1 MG TABLET PO SCH (21:00)
[2018-01-08] MEDS ORDERED: SIMVASTATIN 40 MG PO SCH ×2 (21:00)
[2018-01-08] MEDS ORDERED: DOXEPIN HCL 50 MG PO SCH (21:00)
[2018-01-08] MEDS ORDERED: FINASTERIDE 5 MG TABLET PO SCH (21:00)
[2018-01-08] MEDS: INSULIN GLARGINE 100 UNIT/ML SQ SCH (21:43)
[2018-01-09] MEDS ORDERED: INSULIN ASPART 100 UNIT/ML SQ SCH (06:30)
[2018-01-09] MEDS ORDERED: [UNRECOGNIZED DRUG - OTHER] SQ SCH (06:30)
[2018-01-09 07:17] VITALS: BP 153/81; RESP 18; TEMP 97; O2SAT 96
[2018-01-09] MEDS ORDERED: CEFTRIAXONE 1 G in NS 100 ML IV SCH (08:00)
[2018-01-09 08:14] VITALS: PULSE 59
[2018-01-09] MEDS ORDERED: INSULIN GLARGINE 100 UNIT/ML SQ SCH (09:00)
[2018-01-09] MEDS ORDERED: LEVEMIR SQ SCH (09:00)
[2018-01-09] MEDS ORDERED: VILANTEROL ORAL INH SCH (09:00)
[2018-01-09] MEDS ORDERED: AMLODIPINE 5 MG PO SCH (09:00)
[2018-01-09] MEDS ORDERED: FLUTICASONE ORAL INH SCH (09:00)
[2018-01-09] MEDS ORDERED: ASPIRIN *EC* 81 MG TABLET PO SCH (09:00)
[2018-01-09] MEDS ORDERED: LISINOPRIL 2.5 MG PO SCH (09:00)
[2018-01-09] MEDS ORDERED: LEVOTHYROXINE 75 MCG PO SCH (09:00)
[2018-01-09] MEDS: METOPROLOL TARTRATE 25 MG PO SCH (09:22)
--- NOTE | 2018-01-09 09:38 | XRay Report ---
Indication: chest pain PROCEDURE: XR chest 1V: Encounter: Initial Comparison: November 26, 2014 Findings: Prominent costochondral cartilage calcifications. Prominent epicardial fat pad. Possible infrahilar airspace opacity on the right. The remaining lung villa are stable and grossly clear. No pneumothorax or pleural effusion. Pulmonary vascularity is normal. Mediastinal contours are stable. Impression: Findings as above. .
[2018-01-09] MEDS: INSULIN GLARGINE 100 UNIT/ML SQ SCH (10:29)
--- NOTE | 2018-01-09 10:29 | Discharge Summary ---
Discharge Information Date of admission: 01/08/18 16:20 Anticipated date of discharge: 01/09/18 Attending Physician: Catalina Dave MD Primary care physician: Calderon Pozo, - Discharge Diagnosis (1) Community acquired pneumonia Status: Acute (2) Back pain Status: Acute (3) Atypical chest pain Status: Acute (4) DMII (diabetes mellitus, type 2) Status: Acute (5) Hypertension Status: Acute (6) BPH (benign prostatic hyperplasia) Status: Acute As above. - Laboratory Labs: 01/09/18 04:38 01/09/18 04:38 - Microbiology Blood cultures were drawn at the time of admission, no growth to date, still pending at the time of discharge. - Radiology Radiology: Date of Exam: 01/08/18 Ordering Provider: Yolanda Szymanski APRN Type of Exam(s): XR chest 1V Reason for Exam(s): chest pain Indication: chest pain PROCEDURE: XR chest 1V: Encounter: Initial Comparison: November 26, 2014 Findings: Prominent costochondral cartilage calcifications. Prominent epicardial fat pad. Possible infrahilar airspace opacity on the right. The remaining lung villa are stable and grossly clear. No pneumothorax or pleural effusion. Pulmonary vascularity is normal. Mediastinal contours are stable. Impression: Findings as above. History of Present Illness HPI: Mr. Lopez is a very pleasant 82-year-old gentleman who presented to the ED today due to the above chief complaint. This pain in his chest started in his sleep and awoke him from sleeping, is primarily on the right site with radiation to his back and arm. He denies dyspnea, fever, palpitations, orthopnea, dizziness or syncope. The pain has since eased up in the chest and arm and has now settled in his mid and upper back. Of note, he has had 6 back surgeries in the past and has had a lot of struggles with back pain in recent weeks. He also has a history of CAD and underwent cardiac stenting with Dr. Winston several years ago but has had no recent angina. He is not sure when his last stress test or echo would have been. He was evaluated in the ED and found to have a RLL infiltrate on his CXR. He does not have a leukocytosis, is stable on room air at rest but feels a little weak. His hemoglobin is stable, CXR demonstrates no enlargement of the mediastinum or aortic root. PORT score is 4 as he was tachycardic on arrival. After discussion with the patient and family he is agreeable to staying overnight tonight for observation. Blood cultures were drawn and he received a dose of IV rocephin. History is obtained from the patient and family as there is little in the computer medical record; he is a good historian however, and of note his birthday is tomorrow. Objective Vital signs: Temperature 97.0 F 01/09/18 07:16 Pulse Rate 59 L 01/09/18 08:00 Respiratory Rate 18 01/09/18 07:16 Blood Pressure 153/81 H 01/09/18 07:16 Pulse Oximetry 96 01/09/18 07:16 Height/Weight/BMI: Height 1.73 m Weight 97.5 kg Body Mass Index 32.5 - Constitutional Present: no acute distress, well nourished, well developed, obese, cooperative - Routine HEENT Exam Head: Present: normocephalic, atraumatic Eye: Present: PERRL. Absent: conjunctival icterus ENT: Present: mucous membranes moist, oropharynx clear - Routine Respiratory Exam Present: CTA bilaterally. Absent: rales, rhonchi, wheezes - Routine Cardiovascular Exam Present: RRR. Absent: rubs - Routine Abdominal Exam Present: soft, non distended, non tender - Routine Extremities Exam Present: no edema, pulses intact - Routine Skin Exam Present: dry, warm. Absent: rash - Routine Neurological Exam Present: alert, oriented X3, normal speech - Routine Psychiatric Exam Present: normal affect Hospital Course This is a general summary of the patient's hospital course. For more details refer to the complete medical record. Hospital course: 01/08/18 Impression: CAP with RLL infiltrate on CXR associated with chest/flank pain and dyspnea --> Not hypoxic currently and no leukocytosis, ? 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 Winston outpatient RLS, on requip at night for sleep Plan: Keep for observation on the medical floor with telemetry 02 as needed to keep saturations > 90% Use bipap overnight and titrate to settings for comfort; IV rocephin given x 1 in the ED and will continue daily dosing and monitor for any signs of worsening infection LR @ 75 ml/hour x 1 liter total and hold home lasix Continue home BP medications including amlodipine, lisinopril, metoprolol and monitor BP DNR as per patient request; confirmed with patient and family in the ED and orders placed. When discharged will return to the care of his PCP, Dr. Pozo. Check BMP, CBC, troponin, Mg levels in AM as well as lipid panel. Will keep in observation status, if improved tomorrow may be able to DC on oral antibiotics. 01/09/18 Mr. Lopez feels well today; he slept well overnight with 2L 02 with his bipap per home routine. He has not been coughing, has no fevers. WBC remains normal and troponin is again negative this morning on recheck. He has not had any further chest pain and back pain has resolved while he is resting. Today is his birthday; his family is here this morning to see him. He would like to go home and I don't see any barriers to doing so. I would like him to continue an additional 5 days of po keflex for a 7 day course due to the RLL opacity on CXR although he is not having any current symptoms. He will have his rocephin here prior to leaving today and start the oral antibiotics tomorrow. He will plan to follow up with Dr. Pozo this week. Time spent with patient: 25 - 35 minutes Resuscitation Status: Do Not Resuscitate Discharge Plan - Discharge Disposition Discharge Date: 01/09/18 Disposition: 01 Discharged Home, Self-Care *Condition: Improved Reason For Visit (Visit label in EMR): Chest pain, dyspnea - Discharge Medications *Discharge Medications: New CephALEXin [Keflex 500 mg] 500 mg PO Q12H 5 Days #10 cap Continue Doxepin HCl 50 mg PO HS #0 Insulin Glargine,Hum.rec.anlog [Lantus] 40 unit SQ BID #0 vial Insulin Aspart [NovoLOG] 20 unit SQ ACB #0 vial Insulin Aspart [NovoLOG] 25 unit SQ ACS #0 vial Finasteride [Proscar] 5 mg PO HS Furosemide [Lasix 20 mg Tab] 20 mg PO DAILY Metformin [Glucophage] 500 mg PO BIDWM MetroNIDAZOLE [Flagyl] 250 mg PO TID Levofloxacin [Levaquin] 250 mg PO DAILY Aspirin [Ecotrin] 81 mg PO DAILY Metoprolol Tartrate [Lopressor] 12.5 mg PO BIDWM Nitroglycerin [Nitrostat] 0.4 mg SL Q5M PRN PRN Reason: Chest Pain Lisinopril [Prinivil] 2.5 mg PO DAILY Levothyroxine Tab [Synthroid] 75 mcg PO DAILY Amlodipine [Norvasc] 5 mg PO DAILY Terbinafine Tab [LamISIL] 250 mg PO PRN Ropinirole [Requip] 1 mg PO HS Fluticasone/Vilanterol [Breo Ellipta 200-25 Mcg Inhaler] 1 puff INH DAILY Simvastatin [Zocor] 40 mg PO HS #0 Insulin Aspart [NovoLOG] 25 unit SQ ACL #0 vial Tamsulosin [Flomax] 0.4 mg PO HS Latanoprost 1 drop EACH EYE HS - Discharge Packet/Instructions *Diet: Carb-controlled (diabetic) diet *Activity: Activity as tolerated; no specific restrictions. *Pain Management/Treatment: Tylenol is preferred for management of back pain; you can take up to 1000 mg every 6 hours. If you continue to have pain that is not controlled with tylenol please see your primary care physician this week. *Notify Physician if: you have recurrence of your chest pain, or if you are having fevers (temp > 101F). *During Business Hours Contact: your primary care physician through his office. *After Business Hours Contact: the [facility] switchboard to reach the hospital physician photonics engineering technician or come in to the emergency department for further evaluation. *Pending Lab/Results: No Pending Lab - Referrals/Follow Up *Referrals/Follow Up: Calderon Pozo DO [Primary Care Provider] - 1 Week - Patient Handouts Patient Handouts: Community Acquired Pneumonia (DC) - Dismissal Complete Discharge Instructions are:: Complete Physician Narrative - Narrative Attestation Narrative: Date: 01/09/18 Time: 1026
[2018-01-09] MEDS ORDERED: INSULIN ASPART 100unit/ml INJECTION SQ SCH ×2 (11:30→17:00)
[2018-01-09] MEDS ORDERED: EYE EACH EYE SCH (21:00)
[2018-01-09] MEDS ORDERED: LATANOPROST 0.005% EACH EYE SCH (21:00)
[2018-01-09] MEDS ORDERED: FINASTERIDE 5 MG PO SCH (21:00)
[2018-01-09] MEDS ORDERED: DOXEPIN 50 MG PO SCH (21:00)
== END 2018-01-09 11:00 | disposition home or self-care (01) ==
LOC: MED 13:55 → ED 13:55 → MED 17:10
PROVIDERS: ADMIT Internal Medicine; ATTEND Internal Medicine